=== PATIENT | male | born 1995 | race Caucasian/White ===

== ENCOUNTER 2018-07-24 06:09 | Observation (INO) | payer OTHER ==
[~2018-07-24] VITALS: Ht 188 cm; Wt 68.7 kg
[~2018-07-24 06:09] MED LIST: AMOX50SU; CEFP200 PO; CEPH250SUA PO; CEPH500 PO; HYDACE7.5L; ONDA4ODT MM; RXONDA4ODT MM
[2018-07-24 06:45] LABS: BASOPHILS ABSOLUTE AUTO 0.01 K/mm3 (0.00-0.23); BASOPHILS PERCENT AUTO 0 % (0-2); EOSINOPHILS ABSOLUTE AUTO 0.08 K/mm3 (0.00-0.68); EOSINOPHILS PERCENT AUTO 1 % (0-6); Hematocrit 44.4 % (37.0-53.0); Hemoglobin 14.6 g/dL (13.5-17.5); IMMATURE GRAN ABSOLUTE AUTO 0.02 K/mm3 (0.00-0.10); IMMATURE GRAN PERCENT AUTO 0 % (0-1); LYMPHOCYTES ABSOLUTE AUTO 2.43 K/mm3 (0.84-5.20); LYMPHOCYTES PERCENT AUTO 31 % (21-46); MONOCYTES ABSOLUTE AUTO 0.67 K/mm3 (0.16-1.47); MONOCYTES PERCENT AUTO 9 % (4-13); Mean Corpuscular HGB 29.7 pg (26.0-34.0); Mean Corpuscular HGB Conc 32.9 g/dL (31.5-36.5); Mean Corpuscular Volume 90 fL (80-100); Mean Platelet Volume 9.7 fL (9.1-12.4); NEUTROPHILS ABSOLUTE AUTO 4.71 K/mm3 (1.96-9.15); NEUTROPHILS PERCENT AUTO 59 % (41-73); Platelet Count 279 K/mm3 (150-400); RDW Coefficient Variation 12.5 % (11.7-14.2); RDW Standard Deviation 41.1 fL (35.1-46.3); Red Blood Cell Count 4.92 M/mm3 (4.30-5.90); White Blood Cell Count 7.92 K/mm3 (4.00-11.30)
[2018-07-25 05:33] LABS: BASOPHILS ABSOLUTE AUTO 0.01 K/mm3 (0.00-0.23); BASOPHILS PERCENT AUTO 0 % (0-2); EOSINOPHILS PERCENT AUTO 0 % (0-6); Hemoglobin 13.5 g/dL (13.5-17.5); IMMATURE GRAN ABSOLUTE AUTO 0.03 K/mm3 (0.00-0.10); IMMATURE GRAN PERCENT AUTO 0 % (0-1); LYMPHOCYTES ABSOLUTE AUTO 1.27 K/mm3 (0.84-5.20); LYMPHOCYTES PERCENT AUTO 11 % (21-46); MONOCYTES ABSOLUTE AUTO 0.44 K/mm3 (0.16-1.47); MONOCYTES PERCENT AUTO 4 % (4-13); Mean Corpuscular HGB 30.1 pg (26.0-34.0); Mean Corpuscular HGB Conc 32.9 g/dL (31.5-36.5); Mean Corpuscular Volume 92 fL (80-100); Mean Platelet Volume 9.7 fL (9.1-12.4); NEUTROPHILS ABSOLUTE AUTO 9.64 K/mm3 (1.96-9.15); NEUTROPHILS PERCENT AUTO 85 % (41-73); Platelet Count 279 K/mm3 (150-400); RDW Coefficient Variation 12.3 % (11.7-14.2); RDW Standard Deviation 41.9 fL (35.1-46.3); Red Blood Cell Count 4.48 M/mm3 (4.30-5.90); White Blood Cell Count 11.39 K/mm3 (4.00-11.30)
[2018-07-25 05:57] LABS: Anion Gap 8 mmol/L (6-16); Blood Urea Nitrogen 14 mg/dL (8-24); Bun/Creatinine Ratio 23.2 (12.0-20.0); CO2, Blood 27 mmol/L (21-32); Calcium, Blood 8.9 mg/dL (8.5-10.1); Chloride, Blood 107 mmol/L (98-108); Glomerular Filtration Rate >60 (60-); Glucose, Blood 154 mg/dL (70-99); Potassium, Blood 4.7 mmol/L (3.5-5.5); Sodium, Blood 142 mmol/L (136-145)
[2018-07-25] MEDS ORDERED: SACC250C PO (11:13)
[2018-07-25] MEDS ORDERED: CLIN300 PO (11:14)
[2018-07-25] MEDS ORDERED: DECADRON4 MG PO (11:15)
== END 2018-07-25 18:03 | disposition home or self-care (01) ==
LOC: ER 06:09 → ERHOLD 06:10 → MEDS 06:10 → ERHOLD 09:35 → MEDS 09:35 → ER 09:35 → MEDS 16:20 → ERHOLD 16:25 → MEDS 16:25
PROVIDERS: Emergency Medicine; ADMIT Hospitalist
DX: J39.0 Retropharyngeal and parapharyngeal abscess (principal); K04.7 Periapical abscess without sinus; F17.210 Nicotine dependence, cigarettes, uncomplicated; Z88.8 Allergy status to other drugs, medicaments and biological substances
CPT/HCPCS: 36415; 70491; 80048; 85025; 96365-59; 96366; 96375-59; 96376-59; 99285-25; G0378; J1100; J1885; J7030; Q9967

== ENCOUNTER → 2019-12-19 | Outpatient (CLI) | payer OTHER ==
[~2019-12-19] MED LIST changes: +CLIN300 PO; +DECADRON4 MG PO; +SACC250C PO
[2019-12-20 08:09] LABS: HBSAG SCREEN Negative (Negative); HEP A AB, IGM Negative (Negative); HEP B CORE AB, IGM Negative (Negative); HEP C VIRUS AB <0.1 (0.0-0.9); HIV SCREEN 4TH GENERATION WRFX Non Reactive (Non Reactive)
[2019-12-22 12:08] LABS: NEISSERIA GONORRHOEAE, NAA Negative (Negative)
[2019-12-23 08:48] LABS: CHLAMYDIA TRACHOMATIS, NAA Positive (Negative)
== END | disposition home or self-care (01) ==
LOC: LAB SHORT 15:43 → LAB 15:43
PROVIDERS: Physician Assistant
DX: N34.1 Nonspecific urethritis (principal)
CPT/HCPCS: 80074; 86592; 87389; 87491; 87591

== ENCOUNTER 2023-11-27 08:27 | Day surgery (SDC) | payer OTHER ==
[~2023-11-27] VITALS: Ht 188 cm; Wt 78.5 kg
[2023-11-27] MEDS ORDERED: CeFAZolin Sodium 2,000 MG VIAL ONE (08:39)
[2023-11-27] MEDS ORDERED: Lactated Ringer's 1,000 ML IV ONE ×2 (08:40→09:11)
[2023-11-27] MEDS ORDERED: NS 50 ML IV ONE (08:40)
[2023-11-27] MEDS ORDERED: Tranexamic Acid 100 ML IV ONE (09:23)
[2023-11-27] MEDS ORDERED: Lidocaine 1%-Epineph 1:100000 20 ML MDV ONE (09:24)
[2023-11-27] MEDS ORDERED: Midazolam HCl 1MG / ML 2ML Vial ONE (09:28)
[2023-11-27] MEDS ORDERED: HYDROmorphone HCl/Pf 1MG SYR ONE (09:28)
[2023-11-27] MEDS ORDERED: propofoL 20 ML IV ONE (09:30)
[2023-11-27] MEDS ORDERED: Dexmedetomidine HCL 200 MCG / 2 ML ONE (09:56)
[2023-11-27] MEDS ORDERED: Ondansetron HCl 2 MG / ML 2ML Vial ONE (10:02)
[2023-11-27] MEDS ORDERED: Dexamethasone Sod Phos 10 MG/ML 1ML VIAL ONE (10:02)
--- NOTE | 2023-11-27 10:46 | NUR ---
11/27/23 1046 Nallely Haley CARTILAGE GRAFT OBTAINED, GRAFT SENT TO [facility] IN SPECIFIED CONTAINER
[2023-11-27] MEDS ORDERED: OxyCODONE HCL 5 MG TAB ONE (11:34)
[2023-11-27 12:32] VITALS: BP 131/77
== END 2023-11-27 12:31 | disposition home or self-care (01) ==
LOC: ORSCSDS 08:27
PROVIDERS: Orthopaedic Surgery Sports Medicine
PROC: 0SCC4ZZ Extirpation of Matter from Right Knee Joint, Percutaneous Endoscopic Approach (ICD-10-PCS; principal; 2023-11-27 09:45)
DX: M23.41 Loose body in knee, right knee (principal); S83.004A Unspecified dislocation of right patella, initial encounter; Y93.64 Activity, baseball; F17.290 Nicotine dependence, other tobacco product, uncomplicated
CPT/HCPCS: A9270; J0690; J1100; J1170; J2250; J2405; J2704; J7120

== ENCOUNTER 2024-02-26 10:55 | Day surgery (SDC) | payer BC, OTHER ==
[~2024-02-26] VITALS: Ht 188 cm; Wt 82.4 kg
[~2024-02-26 10:55] MED LIST changes: +FentaNYL Citrate 50 MCG/ML 2 ML Injection ONE; +Lidocaine 1%-Epineph 1:100000 20 ML MDV ONE; +Midazolam HCl 1MG / ML 2ML Vial ONE; +Rocuronium Bromide 10 MG/ML 5ML Injection IV ONE; +propofoL 20 ML IV ONE
[2024-02-26] MEDS ORDERED: Tranexamic Acid 100 ML IV ONE (10:56)
[2024-02-26] MEDS ORDERED: NS 50 ML IV ONE (10:57)
[2024-02-26] MEDS ORDERED: Lactated Ringer's 1,000 ML IV ONE ×2 (10:57→11:20)
[2024-02-26] MEDS ORDERED: CeFAZolin Sodium 2,000 MG VIAL ONE (10:57)
[2024-02-26] MEDS ORDERED: Ketorolac Tromethamine 30mg Vial ONE ×2 (11:33→15:11)
[2024-02-26] MEDS ORDERED: Dexamethasone Sod Phos 10 MG/ML 1ML VIAL ONE (11:33)
[2024-02-26] MEDS ORDERED: Ondansetron HCl 2 MG / ML 2ML Vial ONE ×2 (11:33→14:16)
[2024-02-26] MEDS ORDERED: Thrombin 5000/Vial ONE (11:35)
[2024-02-26] MEDS ORDERED: Sugammadex Sodium 200 MG/2ML SDV (100 MG/ML) ONE (11:35)
[2024-02-26] MEDS ORDERED: Ropivacaine 0.5% HCL/PF 5 MG/ML 30ML Vial ONE (11:44)
--- NOTE | 2024-02-26 12:02 | NUR ---
02/26/24 1202 Zenia Bautista SINGLE DOSE OF TXA GIVEN IN OR BY ANESTHESIA AT 1131
[2024-02-26] MEDS ORDERED: EPINEPhrine HCl 1 MG/ML 1ML Amp XX ONE (12:10)
[2024-02-26] MEDS ORDERED: HYDROmorphone HCl/Pf 1MG SYR ONE (13:14)
--- NOTE | 2024-02-26 14:24 | NUR ---
02/26/24 1424 Rebekah Parker PT STATED THAT HE WAS FEELING SLIGHLY NAUSEATED. PT RECEIVED IV ZOFRAN PUSHED SLOWLY. PT STATED THAT HIS PAIN LEVEL WAS A 2/10 JUST SITTING IN BED.
[2024-02-26] MEDS ORDERED: OxyCODONE HCL 5 MG TAB ONE (15:05)
[2024-02-26] MEDS ORDERED: FentaNYL Citrate 50 MCG/ML 2 ML Injection ONE (15:06)
[2024-02-26 15:35] VITALS: BP 117/73
== END 2024-02-26 15:34 | disposition home or self-care (01) ==
LOC: ORSCSDS 10:55
PROVIDERS: Orthopaedic Surgery Sports Medicine
PROC: 0SUC07Z Supplement Right Knee Joint with Autologous Tissue Substitute, Open Approach (ICD-10-PCS; principal; 2024-02-26 12:00)
DX: S83.511D Sprain of anterior cruciate ligament of right knee, subsequent encounter (principal); M25.561 Pain in right knee; Y93.64 Activity, baseball; F17.290 Nicotine dependence, other tobacco product, uncomplicated
CPT/HCPCS: A9270; J0171; J0690; J1100; J1170; J1885; J2250; J2405; J2704; J2795; J3010; J7120